=== PATIENT | female | born 1955 | race Caucasian/White ===

== ENCOUNTER 2020-10-25 09:45 | Emergency (ER) | payer OTHER ==
[2020-10-25 10:35] LABS: Absolute Lymphocytes (CBC) 2.9 K/uL (0.7-4.9); Basophils % 0.8 % (0-1.3); Hematocrit 36.4 % (36.0-45.0); Lymphocytes % 37.5 % (15.3-44.8); MPV 8.8 fL (7.6-11.3); RBC Red Blood Cell Count 4.16 M/uL (3.86-4.86)
[2020-10-25 10:41] LABS: Protime INR 0.95
[2020-10-25 10:54] LABS: ALT/SGPT 22 U/L (12-78); AST/SGOT 14 U/L (15-37); Albumin 3.8 g/dL (3.4-5.0); Alkaline Phosphatase 108 U/L (45-117); BUN Blood Urea Nitrogen 23 mg/dL (7-18); Bicarbonate 29 mmol/L (21-32); Bilirubin Direct < 0.1 mg/dL (0-0.2); Bilirubin Total 0.3 mg/dL (0.2-1.0); Glucose Level 97 mg/dL (74-106); Magnesium 2.2 mg/dL (1.8-2.4); NT PRO-BNP 205 pg/mL (<125); Potassium 3.2 mmol/L (3.5-5.1); Protein, Total 7.6 g/dL (6.4-8.2); Sodium Level 143 mmol/L (136-145); Troponin (Emerg Dept Use Only) < 0.02 ng/mL (0.0-0.045)
--- NOTE | 2020-10-25 10:56 | RAD REPORT ---
EXAM DESCRIPTION: CT - Head Brain Wo Cont - 10/25/2020 10:32 am CLINICAL HISTORY: DIZZINESS COMPARISON: CT angio head same date TECHNIQUE: Axial 5 mm thick images of the head were obtained without IV contrast. All CT scans are performed using dose optimization technique as appropriate and may include automated exposure control or mA/KV adjustment according to patient size. FINDINGS: No intracranial hemorrhage, mass, edema or shift of mid-line structures. No acute cortical based infarction identifiable. No significant atrophy changes are present. Ventricles are normal in size. Mild chronic ischemic changes are suspected. Mastoid air cells and visualized portions of the paranasal sinuses are clear. No acute bony findings. IMPRESSION: No intracranial hemorrhage is present. No acute cortical based infarction confirmed. Patient does appear to have some chronic ischemic corona e that could potentially mask nonhemorrhagic acute CVA. If the patient continues to have clinical findings concerning for acute CVA, and if tolerable by the patient, MR imaging could be used to assess for subtle acute ischemic change.
--- NOTE | 2020-10-25 10:59 | RAD REPORT ---
EXAM DESCRIPTION: CT - Head angio - 10/25/2020 10:32 am CLINICAL HISTORY: DIZZINESS, TIA, stroke-like symptoms TECHNIQUE: During dynamic enhancement using nonionic IV contrast, axial 1 millimeter thick images of the head were obtained. Sagittal and axial reconstruction images were generated using MIP technique and reviewed. All CT scans are performed using dose optimization technique as appropriate and may include automated exposure control or mA/KV adjustment according to patient size. COMPARISON: CT head same date FINDINGS: No aneurysm or vascular malformation identified. Major venous sinuses are patent. No stenosis, named branch occlusion, vasculitis or other significant vascular finding identifiable. A nterior communicating artery is present. Posterior communicating arteries are not confirmed. This is a normal variant presentation. IMPRESSION: Negative CT angio head examination for acute or significant finding.
--- NOTE | 2020-10-25 11:01 | RAD REPORT ---
EXAM DESCRIPTION: CT - Neck Angio - 10/25/2020 10:32 am CLINICAL HISTORY: dizziness TECHNIQUE: During dynamic enhancement using nonionic IV contrast, axial 2 mm thick images of the nec k were obtained. Sagittal and axial reconstruction images were generated using MIP technique and revi ewed. All CT scans are performed using dose optimization technique as appropriate and may include automated exposure control or mA/KV adjustment according to patient size. COMPARISON: CT head same date, CTA head same date FINDINGS: No aneurysm or vascular malformation identified. No carotid or vertebral dissection. No aortic arch or great vessel origin abnormality seen. Vertebral artery origins unremarkable as well . No stenosis, vasculitis or other significant carotid artery finding. No focal abnormality of either vertebral artery. Basilar artery is normal. Mild vascular tortuosity noted. Visualized portions of each subclavian artery also unremarkable. IMPRESSION: Negative CT angio neck examination acute or significant finding.
[2020-10-25] MEDS ORDERED: MECLIZINE HCL 12.5 MG TAB ONE (11:03)
--- NOTE | 2020-10-25 12:09 | RAD REPORT ---
EXAM DESCRIPTION: RAD - Chest Single View - 10/25/2020 11:27 am CLINICAL HISTORY: dizziness, hypertension COMPARISON: None TECHNIQUE: AP portable chest image was obtained 10/25/2020 11:27 am . FINDINGS: Lungs are clear. Heart and vasculature are normal. No measurable pleural effusion and no p neumothorax. No acute bony abnormality seen. No acute aortic findings suspected. IMPRESSION: No acute cardiopulmonary process.
--- NOTE | 2020-10-25 12:26 | ER ---
Nurse's Notes [facility] Name: Karolina Maza Age: 64 yrs Sex: Female : 1955 Arrival Date: 10/25/2020 Time: 09:51 Bed 18 Private MD: Diagnosis: Dizziness Presentation: 10/25 10:09 Chief complaint: Patient states: "Last night I started having a headache after eating jd3 some pizza so I thought it was just my blood pressure, but then I started to get dizzy and nauseous.". Coronavirus screen: At this time, the client does not indicate any symptoms associated with coronavirus-19. Ebola Screen: Patient negative for fever greater than or equal to 101.5 degrees Fahrenheit, and additional compatible Ebola Virus Disease symptoms. Initial Sepsis Screen: Does the patient meet any 2 criteria? No. Patient's initial sepsis screen is negative. Does the patient have a suspected source of infection? No. Patient's initial sepsis screen is negative. Risk Assessment: Do you want to hurt yourself or someone else? Patient reports no desire to harm self or others. Onset of symptoms was October 24, 2020. 10:09 Method Of Arrival: Ambulatory jd3 10:09 Acuity: ABBY 3 jd3 Historical: - Allergies: 10:14 Clindamycin; jd3 - Home Meds: 10:14 Synthroid Oral [Active]; Premarin Oral [Active]; pravastatin oral oral [Active]; jd3 losartan oral oral [Active]; hydrochlorothiazide Oral [Active]; pantoprazole oral oral [Active]; Aspirin Oral [Active]; - PMHx: 10:14 Hypothyroidism; Hyperlipidemia; Hypertension; jd3 - Immunization history:: Adult Immunizations up to date. - Social history:: Smoking status: Patient denies any tobacco usage or history of. Screenin:00 Abuse screen: Denies threats or abuse. Denies injuries from another. Nutritional dm14 screening: No deficits noted. Tuberculosis screening: No symptoms or risk factors identified. Fall Risk None identified. Assessment: 10:30 General: Appears in no apparent distress. comfortable, Behavior is calm, cooperative, dm14 appropriate for age. 10:30 Pain: Complains of pain in has a headache Pain does not radiate. Pain currently is 6 dm14 out of 10 on a pain scale. Vital Signs: 10:11 BP 173 / 88; Pulse 76; Resp 16 S; Temp 97.9(O); Pulse Ox 98% on R/A; Weight 104.33 kg jd3 (R); Height 5 ft. 6 in. (167.64 cm) (R); Pain 7/10; 10:50 BP 119 / 51; Pulse 66; Resp 18; Pulse Ox 100% ; dm14 11:30 BP 130 / 55; Pulse 59; Resp 18; Pulse Ox 97% ; dm14 12:00 BP 123 / 63; Pulse 58; Resp 18; Pulse Ox 98% ; dm14 10:11 Body Mass Index 37.12 (104.33 kg, 167.64 cm) jd3 ED Course: 09:51 Patient arrived in ED. am2 09:53 Melisa Montgomery, RN is Primary Nurse. dm14 09:56 Alex Manriquez PA is PHCP. jmm 09:57 Uriel Caldwell MD is Attending Physician. jmm 10:10 Triage completed. jd3 10:11 Arm band placed on. jd3 10:28 Radiology exam delayed due to PT IN CT. sw 10:32 CT Head Brain wo Cont In Process Unspecified. EDMS 10:32 CT Head Angio In Process Unspecified. EDMS 10:32 CT Neck Angio In Process Unspecified. EDMS 11:27 X-ray completed. Portable x-ray completed in exam room. Patient tolerated procedure mh1 well. 12:00 Patient has correct armband on for positive identification. Bed in low position. Call dm14 light in reach. 12:00 No provider procedures requiring assistance completed. Inserted saline lock: 20 gauge dm14 in right antecubital area, using aseptic technique. IV discontinued, intact, bleeding controlled, No redness/swelling at site. Pressure dressing applied. 12:09 RAD In Process Unspecified. EDMS Administered Medications: 10:45 Drug: Meclizine 50 mg Route: PO; dm14 12:55 Follow up: Response: No adverse reaction dm14 Outcome: 12:00 Discharged to home ambulatory. dm14 12:00 Condition: stable 12:00 Discharge instructions given to patient, Instructed on discharge instructions, follow up and referral plans. medication usage, Demonstrated understanding of instructions, follow-up care, medications. 12:26 Discharge ordered by . jmm 12:55 Patient left the ED. dm14 Signatures: Dispatcher [employer] EDMS Alex Manriquez PA PA jmm Harvey, Martha 1 Halie Sanders Amanda am2 Davies, Jonathon, RN RN jd3 Melisa Montgomery RN RN dm14 Corrections: (The following items were deleted from the chart) 10:14 10:11 Allergies: No Known Allergies; keyana ridley 12:51 12:48 General: Appears in no apparent distress. comfortable, Behavior is calm, dm14 cooperative, appropriate for age, dm14
--- NOTE | 2020-10-25 12:26 | EDPHYS ---
Physician Documentation [facility] Name: Karolina Maza Age: 64 yrs Sex: Female : 1955 Arrival Date: 10/25/2020 Time: 09:51 Bed 18 Private MD: ED Physician Urile Caldwell HPI: 10/25 10:03 This 64 yrs old Female presents to ER via Ambulatory with complaints of Blood jmm Pressure Problem, Dizziness. 10:03 The patient presents with dizziness, sense of spinning. Onset: The symptoms/episode jmm began/occurred acutely, last night. Modifying factors: The symptoms are alleviated by lying down, the symptoms are aggravated by movement of head, changing position. Associated signs and symptoms: Pertinent positives: nausea, Pertinent negatives: abdominal pain, chest pain. The patient has experienced similar episodes in the past. Historical: - Allergies: 10:14 Clindamycin; jd3 - Home Meds: 10:14 Synthroid Oral [Active]; Premarin Oral [Active]; pravastatin oral oral [Active]; jd3 losartan oral oral [Active]; hydrochlorothiazide Oral [Active]; pantoprazole oral oral [Active]; Aspirin Oral [Active]; - PMHx: 10:14 Hypothyroidism; Hyperlipidemia; Hypertension; jd3 - Immunization history:: Adult Immunizations up to date. - Social history:: Smoking status: Patient denies any tobacco usage or history of. ROS: 10:03 Constitutional: Negative for fever, chills, and weight loss, Cardiovascular: Negative jmm for chest pain, palpitations, and edema, Respiratory: Negative for shortness of breath, cough, wheezing, and pleuritic chest pain, MS/Extremity: Negative for injury and deformity. 10:03 Neuro: Positive for dizziness. 10:03 All other systems are negative. Exam: 10:03 Constitutional: This is a well developed, well nourished patient who is awake, alert, jmm and in no acute distress. Head/Face: atraumatic. 10:03 ENT: Moist Mucus Membranes Neck: Trachea midline, Supple Chest/axilla: Normal chest wall appearance and motion. Cardiovascular: Regular rate and rhythm. No edema appreciated Respiratory: Normal respirations, no respiratory distress appreciated Abdomen/GI: Non distended, soft Back: Normal ROM Skin: General appearance color normal MS/ Extremity: Moves all extremities, no obvious deformities appreciated, no edema noted to the lower extremities Neuro: Awake and alert, normal gait 10:03 Eyes: Nystagmus: nystagmus with fast component noted. 10:03 Neuro: Cerebellar function: normal finger to nose testing, heel to srivastava testing is normal, Motor: is normal. 10:03 Psych: Behavior/mood is pleasant, cooperative. 11:06 ECG was reviewed by the Attending Physician. [facility] Vital Signs: 10:11 BP 173 / 88; Pulse 76; Resp 16 S; Temp 97.9(O); Pulse Ox 98% on R/A; Weight 104.33 kg jd3 (R); Height 5 ft. 6 in. (167.64 cm) (R); Pain 7/10; 10:50 BP 119 / 51; Pulse 66; Resp 18; Pulse Ox 100% ; dm14 11:30 BP 130 / 55; Pulse 59; Resp 18; Pulse Ox 97% ; dm14 12:00 BP 123 / 63; Pulse 58; Resp 18; Pulse Ox 98% ; dm14 10:11 Body Mass Index 37.12 (104.33 kg, 167.64 cm) jd3 MDM: 10:03 Patient medically screened. [facility] 12:25 Data reviewed: vital signs, nurses notes. Counseling: I had a detailed discussion with [facility] the patient and/or guardian regarding: the historical points, exam findings, and any diagnostic results supporting the discharge/admit diagnosis, lab results, radiology results, the need for outpatient follow up, to return to the emergency department if symptoms worsen or persist or if there are any questions or concerns that arise at home. 10/25 10:06 Order name: Basic Metabolic Panel; Complete Time: 11:05 [facility] 10/25 10:06 Order name: CBC with Diff; Complete Time: 11:05 [facility] 10/25 10:06 Order name: LFT's; Complete Time: 11:05 [facility] 10/25 10:06 Order name: Magnesium; Complete Time: 11: [facility] 10/25 10:06 Order name: NT PRO-BNP; Complete Time: 11:05 [facility] 10/25 10:06 Order name: PT-INR; Complete Time: 11:05 [facility] 10/25 10:06 Order name: Troponin (emerg Dept Use Only); Complete Time: 11:05 [facility] 10/25 10:06 Order name: XRAY Chest (1 view) [facility] 10/25 10:06 Order name: EKG; Complete Time: 10:07 [facility] 10/25 10:06 Order name: CT Head Brain wo Cont; Complete Time: 11:05 [facility] 10/25 10:06 Order name: CT Head Angio; Complete Time: 11:05 [facility] 10/25 10:06 Order name: CT Neck Angio; Complete Time: 11:05 [facility] 10/25 12:09 Order name: RAD [facility] 10/25 10:06 Order name: Cardiac monitoring; Complete Time: 10:24 [facility] 10/25 10:06 Order name: EKG - Nurse/Tech; Complete Time: 10:58 [facility] 10/25 10:06 Order name: IV Saline Lock; Complete Time: 10:24 [facility] 10/25 10:06 Order name: Labs collected and sent; Complete Time: 10:24 [facility] 10/25 10:06 Order name: O2 Per Protocol; Complete Time: 10:24 [facility] 10/25 10:06 Order name: O2 Sat Monitoring; Complete Time: 10:24 jmm EC:06 Rate is 61 beats/min. Rhythm is regular. QRS [place] is Normal. PA interval is normal. QRS jmm interval is normal. QT interval is normal. No Q waves. T waves are Normal. No ST changes noted. Reviewed by me. Administered Medications: 10:45 Drug: Meclizine 50 mg Route: PO; dm14 12:55 Follow up: Response: No adverse reaction dm14 Disposition: 16:48 Co-signature as Attending Physician, Uriel Caldwell MD I agree with the assessment and kdr plan of care. Disposition: 10/25/20 12:26 Discharged to Home. Impression: Dizziness. - Condition is Stable. - Discharge Instructions: Benign Positional Vertigo, Iona Maneuver Self-Care. - Prescriptions for Meclizine 25 mg Oral Tablet - take 1 tablet by ORAL route every 8 hours As needed; 30 tablet. Prednisone 20 mg Oral Tablet - take 3 tablet by ORAL route once daily for 5 days; 15 tablet. - Medication Reconciliation Form, Thank You Letter, Antibiotic Education, Prescription Opioid Use form. - Follow up: Private Physician; When: 2 - 3 days; Reason: Recheck today's complaints, Continuance of care, Re-evaluation by your physician. Signatures: Dispatcher [employer] Uriel Hoang MD MD kdr Mickail, Joel, PA PA jmm Davies, Jonathon, RN RN jd3 Melisa Montgomery RN RN dm14 Corrections: (The following items were deleted from the chart) 10:14 10:11 Allergies: No Known Allergies; jd3 jd3 12:55 12:26 10/25/2020 12:26 Discharged to Home. Impression: Dizziness. Condition is Stable. dm14 Forms are Medication Reconciliation Form, Thank You Letter, Antibiotic Education, Prescription Opioid Use. Follow up: Private Physician; When: 2 - 3 days; Reason: Recheck today's complaints, Continuance of care, Re-evaluation by your physician. ravinder
[2020-10-25 20:02] VITALS: TEMP 97.9
[2020-10-25 20:06] VITALS: BP 123/63; O2SAT 98
== END 2020-10-25 12:55 | disposition home or self-care (01) ==
LOC: ER 09:45
DX: R42 Dizziness and giddiness (principal); I10 Essential (primary) hypertension; E03.9 Hypothyroidism, unspecified; E78.5 Hyperlipidemia, unspecified; Z79.82 Long term (current) use of aspirin; Z88.3 Allergy status to other anti-infective agents
CPT/HCPCS: 93005; 85025; 80048; 36415; 83735; 85610; 82565; 80076; 84484; 83880; 70450; 70496; 70498; 71045; 99284; Q9967